=== PATIENT | female | born 1980 | race Caucasian/White ===

== ENCOUNTER 2023-07-27 13:45 | Observation (INO) | payer MEDICAID ==
[2023-07-27 15:28] LABS: Basophils # (auto) 0 10 ^3/uL (0-0.2); Basophils % (auto) 0.4 % (0.0-2.0); Eosinophils # (auto) 0.1 10 ^3/uL (0-0.8); Eosinophils % (auto) 0.9 % (0.0-7.0); Hematocrit 32.3 % (36.0-46.0); Hemoglobin 11.2 g/dL (12.2-16.2); Lymphocytes # (auto) 1.3 10 ^3/uL (0.4-5.4); Lymphocytes % (auto) 15.4 % (10.0-50.0); Mean Corpuscular Hemoglobin 32.2 pg (28.0-32.0); Mean Corpuscular Hgb Conc. 34.8 g/dL (32.0-36.0); Mean Corpuscular Volume 92.7 fL (80.0-100.0); Monocytes # (auto) 0.5 10 ^3/uL (0-1.3); Neutrophils # (auto) 6.3 10 ^3/uL (1.6-8.6); Neutrophils % (auto) 77.3 % (37.0-80.0); Red Blood Cells 3.48 10^6/uL (4.0-5.20); Red Cell Distribution Width 14.9 % (11.8-14.3); White Blood Cell 8.1 10^3/uL (4.4-10.8)
[2023-07-27 15:29] LABS: Urine Bacteria FEW /hpf (None Seen); Urine Blood Negative /uL (Negative); Urine Clarity HAZY (Clear); Urine Color Yellow (Yellow); Urine Protein, UAD Negative (Negative); Urine Specific Gravity 1.017 (1.001-1.035); Urine Urobilinogen Normal (Negative); Urine WBC 2 /hpf (0 - 5); Urine pH 7.5 (5.0-8.0)
[2023-07-27 15:40] LABS: Amphetamine Screen, Urine Neg (NEGATIVE); Barbiturate Scree,Urine Neg (NEGATIVE); Benzodiazephine Screen, Urine Neg (NEGATIVE); Cocaine Screen, Urine Neg (NEGATIVE); Opiate Scree,Urine Neg (NEGATIVE)
[2023-07-27 15:41] LABS: Cannabinoid Screen, Urine Neg (NEGATIVE); Phencyclidine Screen, Urine Neg (NEGATIVE)
[2023-07-27 15:43] LABS: Albumin 3.9 g/dL (3.2-4.8); Alkaline Phosphatase 134 U/L (46-116); Anion Gap 5 (5-15); Aspartate Aminotransferase 8 U/L (13-40); BUN/Creatinine Ratio 10.5 (10.0-20.0); Bilirubin, Total 0.4 mg/dL (0.2-1.0); Blood Urea Nitrogen 6 mg/dL (9-23); Calcium 8.9 mg/dL (8.7-10.4); Carbon Dioxide 25 mmol/L (20-30); Chloride 105 mmol/L (98-107); Glucose 86 mg/dL (74-106); Potassium 3.7 mmol/L (3.5-5.1); Sodium 135 mmol/L (136-145); Total Protein 6.5 g/dL (5.7-8.2)
[2023-07-27 15:49] LABS: Partial Thromboplastin Time 25.9 SEC (24.5-34.5); Prothrombin Time 10.5 sec (9.3-11.8)
[2023-07-27 16:06] LABS: Alanine Aminotransferase 9 U/L (7-40)
[2023-07-28 07:06] LABS: RPR Non Reactive (Non Reactive); Rubella Antibodies, IgG <0.90 index (Immune >0.99)
[2023-07-29 18:06] LABS: QuantiFERON-TB Gold Plus Negative (Negative)
[2023-07-29 20:06] LABS: Treponema pallidum Ab (FTA-Ab) Non Reactive (Non Reactive)
== END 2023-07-27 16:21 | disposition home or self-care (01) ==
LOC: LDRP 13:45 → UNDOADMOB 13:45 → LDRP 13:52
PROVIDERS: ADMIT Obstetrics & Gynecology; ATTEND Obstetrics & Gynecology
DX: O36.8330 Maternal care for abnormalities of the fetal heart rate or rhythm, third trimester, not applicable or unspecified (principal); O62.9 Abnormality of forces of labor, unspecified; Z3A.37 37 weeks gestation of pregnancy; Z79.899 Other long term (current) drug therapy
CPT/HCPCS: 36415; 59025; 76805; 80053; 80307; 81001; 81002; 83036; 85025; 85610; 85730; 86592; 86703; 86762; 86850; 86900; 86901; 87081; 87340; 94760; G0378

== ENCOUNTER 2023-08-11 17:20 | Inpatient (IN) | payer MEDICAID ==
[~2023-08-11] VITALS: Ht 167.6 cm; Wt 70.3 kg
[2023-08-11] MEDS ORDERED: hydrOXYzine 25 MG TAB or CAP PO ONE (19:00)
[2023-08-11] MEDS ORDERED: LACTATED RINGER'S 1,000 ML IV SCH (19:15)
[2023-08-11] MEDS ORDERED: LACTATED RINGER'S 1,000 ML IV ONE (19:15)
[2023-08-11] MEDS ORDERED: ACETAMINOPHEN 325 MG TAB PO ONE (20:00)
[2023-08-11 20:11] LABS: Amphetamine Screen, Urine Neg (NEGATIVE); Barbiturate Scree,Urine Neg (NEGATIVE); Benzodiazephine Screen, Urine Neg (NEGATIVE); Cannabinoid Screen, Urine Neg (NEGATIVE); Cocaine Screen, Urine Neg (NEGATIVE); Opiate Scree,Urine Neg (NEGATIVE); Phencyclidine Screen, Urine Neg (NEGATIVE)
[2023-08-11] MEDS ORDERED: ONDANSETRON HCL 4 MG/2 ML VIAL IV PRN (20:15)
[2023-08-11 22:31] LABS: Basophils # (auto) 0 10 ^3/uL (0-0.2); Basophils % (auto) 0.3 % (0.0-2.0); Eosinophils # (auto) 0.1 10 ^3/uL (0-0.8); Eosinophils % (auto) 0.5 % (0.0-7.0); Hematocrit 33.2 % (36.0-46.0); Hemoglobin 11.4 g/dL (12.2-16.2); Lymphocytes # (auto) 1.7 10 ^3/uL (0.4-5.4); Lymphocytes % (auto) 14.1 % (10.0-50.0); Mean Corpuscular Hemoglobin 31.8 pg (28.0-32.0); Mean Corpuscular Hgb Conc. 34.2 g/dL (32.0-36.0); Mean Corpuscular Volume 93.1 fL (80.0-100.0); Monocytes # (auto) 0.5 10 ^3/uL (0-1.3); Monocytes % (auto) 4.5 % (0.0-12.0); Neutrophils # (auto) 9.4 10 ^3/uL (1.6-8.6); Neutrophils % (auto) 80.6 % (37.0-80.0); Nucleated Red Blood Cells % 0.1 %; Red Blood Cells 3.57 10^6/uL (4.0-5.20); Red Cell Distribution Width 14.7 % (11.8-14.3); White Blood Cell 11.7 10^3/uL (4.4-10.8)
[2023-08-11 22:48] LABS: INR 0.98 (0.9-1.15); Partial Thromboplastin Time 25.2 SEC (24.5-34.5); Prothrombin Time 10.3 sec (9.3-11.8)
[2023-08-11 22:56] LABS: Albumin 3.7 g/dL (3.2-4.8); Alkaline Phosphatase 157 U/L (46-116); Anion Gap 11 (5-15); Aspartate Aminotransferase 11 U/L (13-40); BUN/Creatinine Ratio 10.5 (10.0-20.0); Bilirubin, Total 0.4 mg/dL (0.2-1.0); Blood Urea Nitrogen 6 mg/dL (9-23); Calcium 8.5 mg/dL (8.7-10.4); Carbon Dioxide 19 mmol/L (20-30); Chloride 104 mmol/L (98-107); Glucose 108 mg/dL (74-106); Potassium 3.1 mmol/L (3.5-5.1); Sodium 134 mmol/L (136-145); Total Protein 6.3 g/dL (5.7-8.2)
[2023-08-11 23:01] LABS: Alanine Aminotransferase < 9 U/L (7-40)
[2023-08-11] MEDS ORDERED: TRANEXAMIC ACID 1,000 MG in SODIUM CHL 0.9% 100 ML IV ONE (23:15)
[2023-08-11] MEDS ORDERED: METHYLERGONOVINE MALEATE 0.2 MG/ML AMP IM PRN (23:15)
[2023-08-11] MEDS ORDERED: PROMETHAZINE HCL 25 MG/ML 1ML IV PRN (23:15)
[2023-08-11] MEDS ORDERED: miSOPROStol 100 mcg TAB SL PRN (23:15)
[2023-08-11] MEDS ORDERED: LIDOCAINE 2%HCL (LOCAL ANESTH.) INJ 20ML MDV IJ PRN (23:15)
[2023-08-11] MEDS ORDERED: miSOPROStol 100 mcg TAB PR PRN (23:15)
[2023-08-11] MEDS ORDERED: MEPERIDINE HCL (25 MG/ML) 1ML VIAL IV ONE (23:15)
[2023-08-11] MEDS ORDERED: PHISODERM TOP SOLN 240ML BTL TOP PRN (23:15)
[2023-08-11] MEDS ORDERED: WITCH HAZEL-GLYCERIN PAD TOP PRN (23:15)
[2023-08-11] MEDS ORDERED: CARBOPROST TROMETHAMINE 250 MCG/1ML VIAL IM PRN (23:15)
[2023-08-11] MEDS ORDERED: PENICILLIN G POT 5MIL/D5 50ML 50 ML IV ONE (23:15)
[2023-08-11] MEDS: DERMOPLAST 60ML BOTTLE TOP PRN (23:21)
[2023-08-12] MEDS ORDERED: DIPHENOXYLATE W/ATROPINE 2.5 MG TAB PO PRN
[2023-08-12] MEDS ORDERED: LIDOCAINE 2%HCL (LOCAL ANESTH.) INJ 20ML MDV ONE (00:18)
[2023-08-12] MEDS ORDERED: LACT. RINGERS/OXYTOCIN 20UNITS 500 ML IV ONE ×2 (00:30)
[2023-08-12] MEDS ORDERED: ONDANSETRON ODT 4 MG TAB PO PRN (01:45)
[2023-08-12] MEDS ORDERED: ACETAMINOPHEN 325 MG TAB PO PRN (01:45)
[2023-08-12] MEDS: IBUPROFEN 600 MG TAB PO PRN ×2 (02:37→20:37)
[2023-08-12 03:01] VITALS: BP 116/55; PULSE 65; RESP 18; TEMP 98; O2SAT 98
[2023-08-12] MEDS ORDERED: PENICILLIN G POTASSIUM 2,500,000 UNITS in D5W 5% 50 ML IV SCH (03:15)
[2023-08-12 07:00] VITALS: BP 127/76; PULSE 61; RESP 16; TEMP 98.8; O2SAT 96; O2SAT 98
[2023-08-12] MEDS: HYDROcodone-ACET 5/325MG TAB PO PRN ×4 (08:05→23:16)
[2023-08-12 11:00] VITALS: BP 106/44; PULSE 76; RESP 16; TEMP 98.5
[2023-08-12] MEDS ORDERED: POTASSIUM CHL 20 Meq TABLET PO ONE (11:00)
[2023-08-12 15:00] VITALS: BP 114/67; PULSE 72; RESP 18; TEMP 98.6
[2023-08-12 19:00] VITALS: BP 109/42; PULSE 80; RESP 18; TEMP 98.8; O2SAT 96
[2023-08-12] MEDS: DOCUSATE SOD 100 MG CAP PO SCH (22:02)
[2023-08-12 23:10] VITALS: BP 129/64; PULSE 80; RESP 20; TEMP 98.1; O2SAT 96
[2023-08-13] VITALS (7 sets, daily range): BP systolic 112–126; BP diastolic 44–68; PULSE 57–84; RESP 17–18; TEMP 98–98.6; O2SAT 95–96
[2023-08-13] MEDS ORDERED: MEASLES, MUMPS & RUBELLA VAC(MMRII) 0.5ML SC ONE (01:45)
[2023-08-13] MEDS: HYDROcodone-ACET 5/325MG TAB PO PRN ×4 (06:10→17:08)
[2023-08-13] MEDS: DOCUSATE SOD 100 MG CAP PO SCH (22:40)
[2023-08-14] MEDS ORDERED: ACETAMINOPHEN 325 MG TAB PO PRN (00:30)
[2023-08-14 03:30] VITALS: BP 104/64; PULSE 74; RESP 16; TEMP 98.1; O2SAT 96
[2023-08-14] MEDS: DERMOPLAST 60ML BOTTLE TOP PRN (06:10)
[2023-08-14 07:00] VITALS: BP 120/55; PULSE 84; RESP 17; TEMP 98; O2SAT 97
[2023-08-14] MEDS ORDERED: SERT25TA84 PO (07:16)
[2023-08-14 11:00] VITALS: BP 123/71; PULSE 92; RESP 17; TEMP 98.3; O2SAT 98
[2023-08-14 11:25] VITALS: BP 123/71; PULSE 92; RESP 17; TEMP 98.3; O2SAT 98
== END 2023-08-14 11:25 | disposition home or self-care (01) | DRG 560 ==
LOC: UNDOADMOB 17:20 → LDRP 17:20 → OBSVTOIN 22:55 → INTOOBSV 22:55 → UNDOADMOB 22:55 → LDRP 22:55 → OBSVTOIN 23:06 → LDRP 23:06
PROVIDERS: ADMIT Obstetrics & Gynecology; ATTEND Obstetrics & Gynecology
PROC: 10E0XZZ Delivery of Products of Conception, External Approach (ICD-10-PCS; principal; 2023-08-12)
PROC: 0W8NXZZ Division of Female Perineum, External Approach (ICD-10-PCS; 2023-08-12)
PROC: 0KQM0ZZ Repair Perineum Muscle, Open Approach (ICD-10-PCS; 2023-08-12)
DX: O99.824 Streptococcus B carrier state complicating childbirth (principal); Z37.0 Single live birth; O77.0 Labor and delivery complicated by meconium in amniotic fluid; Z3A.39 39 weeks gestation of pregnancy; O70.1 Second degree perineal laceration during delivery; Z56.0 Unemployment, unspecified
CPT/HCPCS: 36415; 59025; 59409; 76815; 80053; 80307; 81002; 84132; 85025; 85610; 85730; 86850; 86900; 86901; 94760; 96360; 96361; 96365; 96366; 96374; 96375; G0378; J2405; J2540; J2590; J7060